=== PATIENT | female | born 2000 | race African-American/Black ===

== ENCOUNTER 2024-02-29 23:38 | Emergency (ER) | payer OTHER ==
[~2024-02-29] VITALS: Ht 162.6 cm; Wt 65.0 kg
[2024-02-29 23:44] VITALS: O2SAT 100
[2024-03-01 00:05] LABS: HEMATOCRIT. 42.7 % (36.0-48.0); HEMOGLOBIN. 13.7 g/dL (12.0-16.0); MEAN CORPUSCULAR HEMOGLOBIN 30.2 pg (28.0-32.0); MEAN CORPUSCULAR HGB CONC 32.1 g/dL (31.0-37.0); MEAN CORPUSCULAR VOLUME 94.2 fL (81.0-99.0); MEAN PLATELET VOLUME 7.7 fl (7.4-10.4); PLATELET 492 x1000/uL (130-400); RED BLOOD CELL COUNT 4.53 mill/uL (4.2-5.4); RED CELL DISTRIBUTION WIDTH 14.9 % (11.6-14.6); WHITE BLOOD COUNT 25.7 x1000/uL (4.5-11.0)
[2024-03-01 00:10] LABS: DIFFERENTIAL COMMENT 1
[2024-03-01 00:16] LABS: INR 0.9; PROTHROMBIN TIME 10.3 sec (9.6-11.0)
[2024-03-01 00:23] LABS: CHLORIDE 106 mEq/L (98-107); POTASSIUM 3.9 mEq/L (3.5-5.1); SODIUM 140 mEq/L (136-145)
[2024-03-01 00:26] LABS: CALCIUM 9.7 mg/dL (8.7-10.4)
[2024-03-01 00:30] LABS: CREATININE 0.9 mg/dL (0.6-1.0); HCG SCREEN NEGATIVE
[2024-03-01 00:31] LABS: ETHANOL BLOOD 102 mg/dL (<10); UREA NITROGEN BLOOD 11 mg/dL (9-23)
[2024-03-01 00:32] LABS: ALANINE AMINOTRANSFERASE 40 IU/L (10-49); ALBUMIN 5.6 g/dL (3.2-4.8); ASPARTATE AMINOTRANSFERASE 75 IU/L (<34); BILIRUBIN DIRECT 0.2 mg/dL (<=3.0)
[2024-03-01 00:33] LABS: BILIRUBIN TOTAL 0.5 mg/dL (0.1-1.0); PROTEIN TOTAL 8.6 g/dL (6.0-8.3)
[2024-03-01] MEDS: SODIUM CHLORIDE 0.9% 1,000 ML IV ONE (00:34)
[2024-03-01] MEDS: ONDANSETRON HCL 4MG/2ML INJ IV STA (00:34)
[2024-03-01 00:41] LABS: CARBON DIOXIDE < 10 mEq/L (21-32)
[2024-03-01 00:42] LABS: GLUCOSE 47 mg/dL (70-105)
[2024-03-01] MEDS: SODIUM BICARBONATE 8.4% 1 MEQ/ML 50ML SYR IV NR (00:59)
[2024-03-01] MEDS: DEXTROSE 50% WATER 50ML SYRINGE IV NR (00:59)
[2024-03-01] MEDS ORDERED: SODIUM CHLORIDE 0.9% 1,000 ML IV ONE (01:00)
[2024-03-01 01:13] LABS: CREATINE KINASE 226 IU/L (34-145)
[2024-03-01 01:19] LABS: CLARITY URINE CLEAR (CLEAR); COLOR URINE YELLOW (YELLOW); GLUCOSE URINE NEGATIVE (NEGATIVE); KETONES URINE 2+ (NEGATIVE); LEUKOCYTE ESTERASE URINE NEGATIVE (NEGATIVE); NITRITE URINE NEGATIVE (NEGATIVE); OCCULT BLOOD URINE 2+ (NEGATIVE); PROTEIN URINE 1+ (NEGATIVE); SPECIFIC GRAVITY URINE 1.012 (1.005-1.030); UROBILINOGEN URINE 0.2 E.U./dL (0.2-1.0)
[2024-03-01 01:26] LABS: *AMPHETAMINES SCREEN URINE PRESUMPTIVE POSITIVE (NEGATIVE); *BARBITURATES SCREEN URINE NEGATIVE (NEGATIVE); *BENZODIAZEPINES SCREEN URINE NEGATIVE (NEGATIVE); *COCAINE SCREEN URINE NEGATIVE (NEGATIVE); CANNABINOID URINE SCREEN PRESUMPTIVE POSITIVE (NEGATIVE); ECSTASY MDMA SCREEN URINE NEGATIVE (NEGATIVE); METHADONE URINE SCREEN NEGATIVE (NEGATIVE); OPIATES URINE SCREEN NEGATIVE (NEGATIVE); PHENCYCLIDINE URINE SCREEN NEGATIVE (NEGATIVE)
[2024-03-01 01:31] LABS: LACTIC ACID 13.7 mmol/L (0.4-2.0)
[2024-03-01 02:49] VITALS: BP 114/73; PULSE 84; RESP 20; TEMP 98.3
[2024-03-01 06:21] LABS: SQUAMOUS EPITHELIAL CELL URINE FEW /lpf (RARE/1+); WBC URINE 0-2 /hpf (0-2)
[2024-03-01 06:22] LABS: RBC URINE 0-2 /hpf (0-2)
[2024-03-01 06:24] LABS: BACTERIA URINE NONE SEEN
[2024-03-01 06:34] LABS: PLATELET ESTIMATE INCREASED
== END 2024-03-01 02:50 | disposition short-term general hospital (02) ==
LOC: ER 23:38 → CANBEDREQ 03-01 08:43
DX: E16.2 Hypoglycemia, unspecified (principal); D72.829 Elevated white blood cell count, unspecified; E87.20 Acidosis, unspecified; R11.2 Nausea with vomiting, unspecified; J45.909 Unspecified asthma, uncomplicated
CPT/HCPCS: 80076; 80048; 80320; 84703; 83690; 85025; 85610; 36415 ×2; 99285; 80305; 81003; 82550; 82962; 83605; 87040; 96361; 96374; 96375; J7030; J2405; J3490; Z7610 ×2; G0480

== ENCOUNTER 2024-09-13 12:53 | Emergency (ER) | payer OTHER ==
[~2024-09-13] VITALS: Ht 162.6 cm; Wt 60.0 kg
[2024-09-13 12:55] VITALS: BP 119/77; PULSE 94; RESP 20; TEMP 99.7; O2SAT 98
== END 2024-09-13 17:48 | disposition left against medical advice (07) ==
LOC: ER 12:53
DX: R05.9 Cough, unspecified (principal); Z53.21 Procedure and treatment not carried out due to patient leaving prior to being seen by health care provider